=== PATIENT | female | born 1990 | race Hispanic/Latino ===

== ENCOUNTER 2018-03-12 19:59 | Emergency (ER) | payer BC ==
[~2018-03-12] VITALS: Ht 154.9 cm; Wt 61.7 kg
[2018-03-12 20:29] LABS: BASOPHILS # (AUTO) 0.1 (0.0-0.1); BASOPHILS % 0.6 % (0.0-1.0); EOSINOPHILS # (AUTO) 0.5 (0.0-0.4); EOSINOPHILS % 5.5 % (0.0-6.0); HEMATOCRIT 41.4 % (34.2-44.1); HEMOGLOBIN 13.8 g/dL (12.0-16.0); LYMPHOCYTES # (AUTO) 3.1 (1.0-3.2); LYMPHOCYTES % 32.1 % (18.0-39.1); MEAN CORPUSCULAR HEMOGLOBIN 29.4 pg (28-32); MEAN CORPUSCULAR HGB CONC 33.3 g/dL (31-35); MEAN CORPUSCULAR VOLUME 88.1 fL (81-99); MONOCYTES % 10.1 % (4.4-11.3); NEUTROPHILS # (AUTO) 4.9 (2.1-6.9); NEUTROPHILS % 51.4 % (38.7-80.0); PLATELET COUNT 314 x10e3/uL (140-360); RED CELL DISTRIBUTION WIDTH 13.5 % (11.7-14.4)
[2018-03-12 20:41] LABS: ANION GAP 13.1 mmol/L (8-16); BLOOD UREA NITROGEN 14 mg/dL (7-26); BUN/CREATININE RATIO 18 (6-25); CALCIUM 9.8 mg/dL (8.4-10.2); CARBON DIOXIDE 26 mmol/L (22-29); CHLORIDE 104 mmol/L (98-107); CREATININE, SERUM 0.77 mg/dL (0.57-1.11); EST GLOMERULAR FILTRATION RATE > 60 ML/MIN (60-); GLUCOSE 107 mg/dL (74-118); POTASSIUM 4.1 mmol/L (3.5-5.1); SODIUM 139 mmol/L (136-145)
[2018-03-12 21:00] LABS: BILIRUBIN,URINE NEGATIVE (NEGATIVE); CLARITY,URINE SL CLOUDY (CLEAR); COLOR,URINE YELLOW (YELLOW); KETONES,URINE NEGATIVE (NEGATIVE); LEUKOCYTE ESTERASE ,URINE TRACE (NEGATIVE); NITRITE,URINE NEGATIVE (NEGATIVE); PROTEIN,URINE DIPSTICK 1+ (NEGATIVE); URINE UROBILINOGEN 1 mg/dL (0.2 - 1)
[2018-03-12 21:09] LABS: BACTERIA,URINE MANY /HPF; EPITHELIAL CELLS,URINE MANY /LPF; TRANSITIONAL EPI CELLS,URINE MODERATE
[2018-03-12] MEDS ORDERED: MORPHINE SULFATE 2 MG/ML SYR IV STA (21:17)
[2018-03-12] MEDS ORDERED: CEFTRIAXONE SOD 1 GM VIAL IV STA (22:05)
--- NOTE | 2018-03-12 22:49 | Diagnostic Imaging Report ---
EXAM: US TRANSVAGINAL, US PELVIC DOPPLER LTD INDICATION: \S\left pelvic pain: rupture ovarian cyst vs torsion COMPARISON: None TECHNIQUE: Grayscale transverse and sagittal transabdominal and transvaginal images were obtained of the pelvis. Transvaginal images were necessary to better assess anatomic detail. The ovaries were examined with grayscale, color Doppler, and spectral waveform analysis. FINDINGS: Uterus Orientation: Retroverted Size: 8.2 x 4.5 x 5.0 cm, normal Mass: None Cervix: Normal Endometrium: Thickness: 0.14 cm, Normal. Appearance: Homogeneous echotexture without focal thickening. Right ovary: Size: 2.6 x 1.8 x 1.7 cm Mass/Cyst: None Vascularity: Arterial and venous color flow and waveforms. Left ovary: Size: 3.6 x 2.2 by cm Mass/Cyst: 2.3 x 1.8 x 1.7 cm simple ovarian cyst/dominant follicle. Vascularity: Arterial and venous color flow and waveforms. Adnexa: Normal Cul-de-sac: No free fluid IMPRESSION: 1. Normal-appearing ovaries with documented flow. Low likelihood of ovarian torsion. 2. Unremarkable pelvic ultrasound exam. Signed by: Dr Ligia Storey MD on 03/12/2018 10:45 PM
== END 2018-03-12 23:34 | disposition home or self-care (01) ==
LOC: ER 19:59
DX: R10.32 Left lower quadrant pain (principal); R11.0 Nausea; N30.90 Cystitis, unspecified without hematuria
CPT/HCPCS: 36415; 76830; 80048; 81001; 84702; 85025; 93976; 99284; J0696; J2270

== ENCOUNTER → 2021-09-11 | Day surgery (SDC) | payer BC ==
[~2021-09-11] MED LIST: CEFTIN PO; FENTANYL CITRATE/PF 100MCG/2 ML INJ ONE; LIDOCAINE HCL 2% LOCAL INJ 5 ML SDV VIAL INJ ONE; PROPOFOL IV EMULSION 10 MG/ML 20 ML VIAL ONE; ZOFRAN4 MG PO
[2021-09-11 16:15] VITALS: BP 114/72
== END | disposition home or self-care (01) ==
LOC: OR 12:24
PROVIDERS: ATTEND Internal Medicine Gastroenterology
DX: K29.70 Gastritis, unspecified, without bleeding (principal); K29.80 Duodenitis without bleeding; K20.90 Esophagitis, unspecified without bleeding; R19.7 Diarrhea, unspecified; N39.0 Urinary tract infection, site not specified; Z01.812 Encounter for preprocedural laboratory examination; Z20.822 Contact with and (suspected) exposure to COVID-19; Z68.30 Body mass index [BMI] 30.0-30.9, adult; Z86.16 Personal history of COVID-19; Z86.19 Personal history of other infectious and parasitic diseases
CPT/HCPCS: 43239; 81025; C9113; J2001; J2704; J3010; U0002